=== PATIENT | female | born 1935 | race African-American/Black ===

== ENCOUNTER 2019-07-12 21:54 | Emergency (ER) | payer MEDICARE ==
[2019-07-12] MEDS ORDERED: ASPIRIN 81 MG TABLET, CHEWABLE PO ONE (22:02)
--- NOTE | 2019-07-12 23:01 | ER Document Report ---
ED Medical Screen (RME) - General Chief Complaint: Chest Pain > 30 Stated Complaint: EPIGASTRIC PAIN Time Seen by Provider: 07/12/19 22:54 Notes: HPI: 83-year-old female with no significant past medical history however she has not followed up with a primary care doctor in many years here for some epigastric chest pain that started around 2 PM however she states she took an Giovana-[place] and that nearly resolved the pain but she wanted to come in to get checked out. She has not had a cardiac work-up recently or a stress test. She denies having a PCP. No blood thinners. She denies taking any medications regularly. No ripping or tearing sensation. No fall or trauma. She states she feels a little nauseous but denies any fever, cough, shortness of breath, vomiting, diarrhea, constipation, UTI symptoms, history of this before, or any other symptoms. No other complaints at this time. pos fam hx of mother having an VA. she was a previous smoker. denies current tobacco use. ROS neg to include 10 systems, unless mentioned in the hpi. PE:>>>> PHYSICAL_EXAM: GENERAL_APPEARANCE: well_nourished, alert, cooperative, no_acute_distress, no_obvious_discomfort. pleasant, obese elderly black female, smiling, speaking in full sentences, in no sign of pain or resp distress, adult daughter at bedside VITALS: reviewed, see vital signs table. HEAD: no_swelling\tenderness on the head. normocephalic. atraumatic. no aguilar signs. no raccoons eyes. EYES: PERRL, EOMI, conjunctiva_clear. NOSE: no_nasal_discharge. MOUTH: (-)decreased moisture. THROAT: no_tonsilar_inflammation, no_airway_obstruction. no_lymphadenopathy NECK: supple, no_neck_tenderness, full rom. full strength. no meningeal signs. BACK: no_back_tenderness. CHEST_WALL: no_chest_tenderness. no overlying skin changes LUNGS: no_wheezing, ctab (-)accessory muscle use, good air exchange bilateral. HEART: normal_rate, normal_rhythm, ABDOMEN: normal_BS, soft, no_abd_tenderness, (-)guarding, (-)rebound, no distension or peritoneal signs. no cva ttp EXTREMITIES: strength 5/5 in all_extremities, good pulses in all_extremities, no_swelling\tenderness in the extremities, no_edema. full rom. good pulses. brisk cap refill. good hand hammer setter. NEURO: motor and sensation intact, SKIN: warm, dry, good_color, no_rash. MENTAL_STATUS: speech_clear, oriented_X_3, normal_affect, responds_appropriately to questions. MDM: I have ordered labs and initial work-up and patient will be transferred to the main ER for further work-up. I have greeted and performed a rapid initial assessment of this patient. A comprehensive ED assessment and evaluation of the patient, analysis of test results and completion of medical decision making process will be conducted by an additional ED providers. Documentation achieved through voice recording which my lead to some occasional accidental typographical errors. Extensive efforts have been made to proof read documentation to make sure these are the least as possible Temp Pulse Resp BP Pulse Ox 07/12/19 22:18 98.2 F 66 16 169/74 H 95 Category Date Time Status Continuous Cardiac Monitoring (ED) CONTINUOUS Care 07/12/19 22:02 Active EKG Documentation STAT Care 07/12/19 22:02 Completed Oxygen (ED) Nasal Cannula 2 lpm Care 07/12/19 22:02 Active Pulse Oximeter Continuous (ED) CONTINUOUS Care 07/12/19 22:02 Active Saline Lock (ED) NOW Care 07/12/19 22:02 Active CHEST 2 VIEWS [RAD] Stat Exams 07/12/19 22:56 Ordered CBC WITH DIFF [HEME] Stat Lab 07/12/19 22:02 Ordered COMPREHENSIVE METABOLIC PANEL [CHEM] Stat Lab 07/12/19 22:02 Ordered CREATINE KINASE MB [CHEM] Stat Lab 07/12/19 22:02 Ordered CREATINE KINASE [CHEM] Stat Lab 07/12/19 22:02 Ordered LIPASE [CHEM] Stat Lab 07/12/19 22:56 Ordered PARTIAL THROMBOPLASTIN TIME [COAG] Stat Lab 07/12/19 22:56 Ordered PROTHROMBIN TIME/INR [COAG] Stat Lab 07/12/19 22:56 Ordered TROPONIN I [CHEM] Stat Lab 07/12/19 22:02 Ordered TROPONIN I [CHEM] Stat Lab 07/13/19 02:02 Ordered URINALYSIS [URIN] Stat Lab 07/12/19 22:56 Uncollected Aspirin [Aspirin 81 mg Chewable Tablet] Med 07/12/19 22:02 Discontinued 324 mg PO NOW ONE EKG ER ONLY [ER] Stat Oth 07/12/19 22:02 Active TRAVEL OUTSIDE OF THE [place] IN LAST 30 DAYS: No - Related Data Allergies/Adverse Reactions: No Known Allergies Allergy (Unverified 07/12/19 22:02) Physical Exam - Vital signs Vitals: Temp Pulse Resp BP Pulse Ox 98.2 F 66 16 169/74 H 95 07/12/19 22:18 07/12/19 22:18 07/12/19 22:18 07/12/19 22:18 07/12/19 22:18 Course - Vital Signs Vital signs: Temp Pulse Resp BP Pulse Ox 98.2 F 66 16 169/74 H 95 07/12/19 22:18 07/12/19 22:18 07/12/19 22:18 07/12/19 22:18 07/12/19 22:18
[2019-07-12 23:32] LABS: ABSOLUTE LYMPHOCYTES (AUTO) 0.9 10^3/uL (0.5-4.7); ABSOLUTE MONOCYTES (AUTO) 0.2 10^3/uL (0.1-1.4); ABSOLUTE NEUT (AUTO) 7.4 10^3/uL (1.7-8.2); BASOPHILS % (AUTO) 0.2 % (0-2); HEMOGLOBIN 13.6 g/dL (12.0-15.5); MEAN CORPUSCULAR HEMOGLOBIN 32.6 pg (27.0-33.4); MEAN CORPUSCULAR HGB CONC 33.9 g/dL (32.0-36.0); MEAN CORPUSCULAR VOLUME 96 fl (80-97); MONOCYTES % (AUTO) 2.5 % (3-13); PLATELET COUNT 237 10^3/uL (150-450); RED BLOOD COUNT 4.16 10^6/uL (3.72-5.28); RED CELL DISTRIBUTION WIDTH 14.3 % (11.5-14.0); SEGMENTED NEUTROPHILS % (AUTO) 87.3 % (42-78); TOTAL CELLS COUNTED % (AUTO) 100 %; WHITE BLOOD COUNT 8.5 10^3/uL (4.0-10.5)
[2019-07-12 23:43] LABS: ALBUMIN 4.3 g/dL (3.5-5.0); ALKALINE PHOSPHATASE 110 U/L (38-126); ANION GAP 14 (5-19); ASPARTATE AMINO TRANSFERASE 106 U/L (14-36); BILIRUBIN,DIRECT 1.4 mg/dL (0.0-0.4); BILIRUBIN,TOTAL 2.1 mg/dL (0.2-1.3); BLOOD UREA NITROGEN 10 mg/dL (7-20); CALCIUM 9.8 mg/dL (8.4-10.2); CARBON DIOXIDE 22 mmol/L (22-30); CHLORIDE 104 mmol/L (98-107); CREATINE KINASE 102 U/L (30-135); GLUCOSE 145 mg/dL (75-110); POTASSIUM 3.6 mmol/L (3.6-5.0); TOTAL PROTEIN 8.3 g/dL (6.3-8.2)
--- NOTE | 2019-07-12 23:43 | RADIOLOGY REPORT (SQ) ---
XR CHEST 2 VIEWS EXAM DATE: 07/12/2019 10:56 PM CDT HISTORY: Chest pain. COMPARISON: None. FINDINGS: The heart size is within normal limits. No consolidation, pleural effusion, or pneumothorax is seen. Left lung base atelectasis. The bony thorax is intact. IMPRESSION: No evidence of acute cardiopulmonary disease.
[2019-07-12 23:46] LABS: INTERNATIONAL RATION (INR) 1.04; PROTHROMBIN TIME 13.6 SEC (11.4-15.4)
[2019-07-12 23:47] LABS: PARTIAL THROMBOPLASTIN TIME 25.2 SEC (23.5-35.8)
[2019-07-12 23:56] LABS: CREATINE KINASE MB 0.45 ng/mL (<4.55); TROPONIN I < 0.012 ng/mL
--- NOTE | 2019-07-13 00:56 | ER Document Report ---
ED General - General Chief Complaint: Chest Pain > 30 Stated Complaint: EPIGASTRIC PAIN Time Seen by Provider: 07/12/19 22:54 Mode of Arrival: Medic Information source: Patient TRAVEL OUTSIDE OF THE [place] IN LAST 30 DAYS: No - HPI Notes: HPI: 83-year-old female with no significant past medical history however she has not followed up with a primary care doctor in many years here for some midline lower to upper abd pain that started around 2 PM however she states she took an Giovana-[place] and that nearly resolved the pain but she wanted to come in to get checked out. She has not had a cardiac work-up recently or a stress test. She denies having a PCP. No blood thinners. She denies taking any medications regularly. No ripping or tearing sensation. No fall or trauma. She states she feels a little nauseous but denies any fever, cough, shortness of breath, vomiting, diarrhea, constipation, UTI symptoms, history of this before, or any other symptoms. No other complaints at this time. pos fam hx of mother having an IN. she was a previous smoker. denies current tobacco use. No back pain. The patient is on no medications and has no regular practitioner. - Related Data Allergies/Adverse Reactions: No Known Allergies Allergy (Unverified 07/12/19 22:02) Past Medical History - General Information source: Patient, Relative - Social History Smoking Status: Former Smoker Frequency of alcohol use: None Drug Abuse: None Lives with: Family Family History: CAD Review of Systems - Review of Systems -: Yes All other systems reviewed and negative Physical Exam - Vital signs Vitals: Temp Pulse Resp BP Pulse Ox 98.2 F 66 16 169/74 H 95 07/12/19 22:18 07/12/19 22:18 07/12/19 22:18 07/12/19 22:18 07/12/19 22:18 - Notes Notes: PHYSICAL EXAMINATION: GENERAL: Well-appearing, well-nourished and in no acute distress. HEAD: Atraumatic, normocephalic. EYES: Pupils equal round and reactive to light, extraocular movements intact, conjunctiva are normal. ENT: Nares patent, oropharynx clear without exudates. Moist mucous membranes. NECK: Normal range of motion, supple without lymphadenopathy LUNGS: Breath sounds clear to auscultation bilaterally and equal. No wheezes rales or rhonchi. HEART: Regular rate and rhythm without murmurs ABDOMEN: Soft, nondistended abdomen. No guarding, no rebound. No masses appreciated. Pain from the suprapubic region extending up to the mid epigastric region. Patient reports this is better after she vomited once at the onset of the exam. Negative Trimble's. No gross hepatosplenomegaly. Female : deferred Musculoskeletal: Normal range of motion, no pitting or edema. No cyanosis. NEUROLOGICAL: Cranial nerves grossly intact. Normal speech, normal gait. Normal sensory, motor exams PSYCH: Normal mood, normal affect. SKIN: Warm, Dry, normal turgor, no rashes or lesions noted. Course - Re-evaluation Re-evalutation: 07/13/19 01:12 Patient was given IV Zofran and Pepcid. 07/13/19 08:10 Initial blood pressure was elevated but this improved over time without any spec ific therapy.. The patient had a slight elevation of her total bilirubin at 2.1 with a direct bilirubin of 1.4. UTI was noted and patient was given IV Rocephin after urine culture was obtained. CT scan raised question of acute cholecystitis, although there is no mention of specific findings. Ultrasound was suggested and this was ordered. Care was turned over to Dr. Salvador at 0 600 for further evaluation and management. - Vital Signs Vital signs: Temp Pulse Resp BP Pulse Ox 98.2 F 60 16 147/84 H 96 07/12/19 22:18 07/13/19 01:41 07/13/19 05:01 07/13/19 05:01 07/13/19 05:01 - Laboratory Result Diagrams: 07/12/19 23:15 07/12/19 23:15 Laboratory results interpreted by me: 07/12/19 07/12/19 07/13/19 23:15 23:15 04:36 RDW 14.3 H Seg Neutrophils % 87.3 H Lymphocytes % 10.0 L Monocytes % 2.5 L Glucose 145 H Total Bilirubin 2.1 H Direct Bilirubin 1.4 H AST 106 H Total Protein 8.3 H Urine Blood SMALL H Urine Urobilinogen 2.0 H Ur Leukocyte Esterase SMALL H - EKG Interpretation by Ms EKG shows normal: Sinus rhythm Additional EKG results interpreted by oh: 07/13/19 01:14 EKG is interpreted by me showed normal sinus rhythm heart rate of 66. There is left anterior fascicular block and borderline left ventricular hypertrophy. There is no gross evidence for acute IN. There are T wave inversions in lead III and aVF. No old EKG available for comparison. Discharge - Discharge Clinical Impression: Urinary tract infection Qualifiers: Urinary tract infection type: acute cystitis Disposition: OTHER
[2019-07-13] MEDS ORDERED: ONDANSETRON HCL INJ/PF 4 MG/2 ML SDV IV ONE (01:09)
[2019-07-13] MEDS ORDERED: ASPIRIN 81 MG TABLET, CHEWABLE ONE (01:58)
[2019-07-13 04:53] LABS: APPEARANCE,URINE CLEAR; BILIRUBIN,URINE NEGATIVE (NEGATIVE); COLOR,URINE YELLOW; GLUCOSE, URINE NEGATIVE (NEGATIVE); KETONES,URINE NEGATIVE (NEGATIVE); LEUKOCYTE ESTERASE,URINE SMALL (NEGATIVE); NITRITE,URINE NEGATIVE (NEGATIVE); PROTEIN,URINE NEGATIVE (NEGATIVE)
--- NOTE | 2019-07-13 04:56 | RADIOLOGY REPORT (SQ) ---
EXAM DESCRIPTION: CT ABDOMEN PELVIS WITH IV CONTRAST COMPLETED DATE/TME: 07/13/2019 00:00 CLINICAL HISTORY: 83 years, Female, diffuse abd pain, mild bilirubin elevation COMPARISON: None. TECHNIQUE: Axial CT images of the abdomen and pelvis were obtained after the administration of IV contrast. Sagittal and coronal reformats were performed. DL [id number] Images stored on PACS. All CT scanners at this facility use dose modulation, iterative reconstruction, and/or weight based dosing when appropriate to reduce radiation dose to as low as reasonably achievable (ALARA). [facility]: Dose Right [facility]: CareDose [facility]: Dose Right [facility]: Teradose 4D [facility]: Diaferon LIMITATIONS: None. FINDINGS: Lung bases are clear. The liver, pancreas, spleen, and adrenal glands are unremarkable. The gallbladder is mildly distended with mild thickening and hyperemia of the zhang. No calcified stone is identified. No evidence of intra or extrahepatic biliary dilatation. The common bile duct measures approximately 4 mm in diameter. Both kidneys enhance normally. No evidence of urolithiasis or hydronephrosis. There is no intraperitoneal free air or fluid. There is no lymphadenopathy. The abdominal aorta is normal in caliber. There are atherosclerotic calcifications of the iliac branches. The stomach, small bowel, and appendix appear unremarkable. The colon is incompletely distended. The uterus, urinary bladder, and adnexa appear unremarkable. There are no lytic or blastic bone lesions. IMPRESSION: Findings concerning for acute cholecystitis. Further evaluation with ultrasound may be useful. TECHNICAL DOCUMENTATION: Quality ID # 436: Final reports with documentation of one or more dose reduction techniques (e.g., Automated exposure control, adjustment of the mA and/or kV according to patient size, use of iterative reconstruction technique) copyright 2011 [employer]- All Rights Reserved
[2019-07-13] MEDS ORDERED: CEFTRIAXONE 1 GM/D5W RTU 1 GM/50 ML RTUPB IV ONE (06:47)
--- NOTE | 2019-07-13 09:14 | RADIOLOGY REPORT (SQ) ---
EXAM DESCRIPTION: U/S ABDOMEN LIMITED W/O DOP COMPLETED DATE/TIME: 07/13/2019 8:35 am REASON FOR STUDY: RUQ pain COMPARISON: None. TECHNIQUE: Dynamic and static grayscale images acquired of the abdomen and recorded on PACS. Additio nal selected color Doppler and spectral images recorded. LIMITATIONS: None. FINDINGS: PANCREAS: No masses. Visualized pancreatic duct normal caliber. LIVER: No masses. Echotexture normal. LIVER VASCULATURE: Normal directional flow of the main portal vein and hepatic veins. GALLBLADDER: Small stones. Borderline wall thickness. Small amount of pericholecystic fluid. ULTRASOUND-DETECTED SERRANO'S SIGN: Negative. INTRAHEPATIC DUCTS AND COMMON DUCT: CBD and intrahepatic ducts normal caliber. No filling defects. INFERIOR VENA CAVA: Normal flow. AORTA: No aneurysm identified. RIGHT KIDNEY: Normal size. Normal echogenicity. No solid or suspicious masses. No hydronephros is. No calcifications. PERITONEAL AND RIGHT PLEURAL SPACE: No ascites or effusions. OTHER: No other significant findings. IMPRESSION: Gallstones and borderline wall thickness. Small amount of pericholecystic fluid. TECHNICAL DOCUMENTATION: JOB ID: [id number] [place]-72 2010 [email or web address]- All Rights Reserved Reading location - IP/workstation name: [employer]
--- NOTE | 2019-07-13 10:30 | EKG REPORT ---
SEVERITY:- ABNORMAL ECG - SINUS RHYTHM LEFT ANTERIOR FASCICULAR BLOCK LEFT VENTRICULAR HYPERTROPHY ABNORMAL T, CONSIDER ISCHEMIA, INFERIOR LEADS : Confirmed by: Kasey Thomas 13-Jul-2019 10:29:42
--- NOTE | 2019-07-13 12:07 | PDOC CONSULTATION ---
Consultation Consult Date: 07/13/19 Provider Consulted: FRANKIE KARIMI Consult reason:: gallstones History of Present Illness Admission Date/PCP: 07/13/19 11:25 History of Present Illness: KIEL MCGRATH is a 83 year old female suddenly c/o epigastric pains yesterday around noon time after a fatty meal. Had some mild nausea and then went to ED today. Had one episode of vomiting in the ED and felt better afterwaeds. Right now claims she does not have any more pains and feels ungry. Denies fever nor chills, diarrhea nor constipation. Past Surgical History Past Surgical History: Reports: Tubal Ligation Social History Lives with: Family Smoking Status: Former Smoker Family History Family History: CAD Parental Family History Reviewed: Yes Children Family History Reviewed: No Sibling(s) Family History Reviewed.: No Medication/Allergy Allergies/Adverse Reactions: No Known Allergies Allergy (Unverified 07/12/19 22:02) Review of Systems Constitutional: PRESENT: as per HPI Physical Exam Vital Signs: Temp Pulse Resp BP Pulse Ox 98.2 F 60 19 146/82 H 97 07/12/19 22:18 07/13/19 01:41 07/13/19 09:01 07/13/19 09:01 07/13/19 09:01 Intake & Output 07/12/19 07/13/19 07/14/19 06:59 06:59 06:59 Intake Total 50 Balance 50 Weight 90.2 kg General appearance: PRESENT: no acute distress Head exam: PRESENT: atraumatic Eye exam: PRESENT: conjunctiva pink Mouth exam: PRESENT: moist Neck exam: PRESENT: full ROM Respiratory exam: PRESENT: clear to auscultation brinda Pulses: PRESENT: normal radial pulses GI/Abdominal exam: PRESENT: soft - non tender Results Laboratory Results: 07/12/19 23:15 07/12/19 23:15 07/12/19 07/12/19 07/13/19 23:15 23:15 04:36 WBC 8.5 RBC 4.16 Hgb 13.6 Hct 40.0 MCV 96 MCH 32.6 MCHC 33.9 RDW 14.3 H Plt Count 237 Seg Neutrophils % 87.3 H Lymphocytes % 10.0 L Monocytes % 2.5 L Eosinophils % 0.0 Basophils % 0.2 Absolute Neutrophils 7.4 Absolute Lymphocytes 0.9 Absolute Monocytes 0.2 Absolute Eosinophils 0.0 Absolute Basophils 0.0 Sodium 139.6 Potassium 3.6 Chloride 104 Carbon Dioxide 22 Anion Gap 14 BUN 10 Creatinine 0.71 Est GFR ( Amer) > 60 Est GFR (Non-Af Amer) > 60 Glucose 145 H Calcium 9.8 Total Bilirubin 2.1 H AST 106 H Alkaline Phosphatase 110 Total Protein 8.3 H Albumin 4.3 Lipase 72.0 Urine Color YELLOW Urine Appearance CLEAR Urine pH 7.0 Ur Specific [place] 1.010 Urine Protein NEGATIVE Urine Glucose (UA) NEGATIVE Urine Ketones NEGATIVE Urine Blood SMALL H Urine Nitrite NEGATIVE Ur Leukocyte Esterase SMALL H Urine WBC (Auto) 15 07/12/19 07/12/19 07/13/19 23:15 23:15 02:00 Creatine Kinase 102 CK-MB (CK-2) 0.45 Troponin I < 0.012 < 0.012 Impressions: Chest X-Ray 07/12/19 22:56 IMPRESSION: No evidence of acute cardiopulmonary disease. Abdomen/Pelvis CT 07/13/19 00:00 IMPRESSION: Findings concerning for acute cholecystitis. Further evaluation with ultrasound may be useful. TECHNICAL DOCUMENTATION: Quality ID # 436: Final reports with documentation of one or more dose reduction techniques (e.g., Automated exposure control, adjustment of the mA and/or kV according to patient size, use of iterative reconstruction technique) copyright 2011 [employer]- All Rights Reserved Abdomen Ultrasound 07/13/19 06:31 IMPRESSION: Gallstones and borderline wall thickness. Small amount of pericholecystic fluid. Assessment & Plan - Diagnosis (1) cholelithiasis Is this a current diagnosis for this admission?: Yes (2) Biliary colic Is this a current diagnosis for this admission?: Yes - Time Time Spent: 30 to 50 Minutes - Plan Summary Plan Summary: She is now asymptomatic with normal WBC. Her Bilirubin and AST are slightly elevated not exactly sure about etiology. Will repeat these test on OPD basis and follow up at the surgical clinic next week for possible elective laparoscopic cholecystectomy. Will try low fat diet and if tolerates OK to discharge from ED to be followed in the surgical clinic. Advised patient in the presence of her family about low fat diet prior to cholecystectomy.
[2019-07-13 13:58] VITALS: BP 160/84
== END 2019-07-13 13:58 | disposition home or self-care (01) ==
LOC: ER 21:54 → EH 07-13 11:25 → UNDOADMIN 07-13 11:25 → UNDODISIN 07-13 11:59 → ER 07-13 13:58
DX: K81.9 Cholecystitis, unspecified (principal); N39.0 Urinary tract infection, site not specified; R10.10 Upper abdominal pain, unspecified
CPT/HCPCS: 93005; 99285; 96375; 96365; 36415; 87086; 82553; 82550; 83690; 85025; 85610; 85730; 87088; 80053; 81001; 84484; 87186; 71046; 76705; 74177; 93010; A9270; J2405; J0696

== ENCOUNTER → 2019-07-18 | Outpatient (CLI) | payer MEDICARE ==
[2019-07-18 08:44] LABS: ALBUMIN 4.3 g/dL (3.5-5.0); ALKALINE PHOSPHATASE 123 U/L (38-126); ASPARTATE AMINO TRANSFERASE 42 U/L (14-36); BILIRUBIN,DIRECT 0.6 mg/dL (0.0-0.4); BILIRUBIN,TOTAL 1.2 mg/dL (0.2-1.3); TOTAL PROTEIN 7.6 g/dL (6.3-8.2)
[2019-07-18 09:08] LABS: CARCINOEMBRYONIC ANTIGEN 5.7 ng/mL (<3.0)
== END ==
LOC: OD 07:04
PROVIDERS: ATTEND Surgery
DX: K82.8 Other specified diseases of gallbladder (principal); C25.9 Malignant neoplasm of pancreas, unspecified; R94.5 Abnormal results of liver function studies; K80.20 Calculus of gallbladder without cholecystitis without obstruction; R10.9 Unspecified abdominal pain
CPT/HCPCS: 36415; 80076; 82378; 86301

== ENCOUNTER 2019-07-24 05:22 | Day surgery (SDC) | payer MEDICARE ==
[~2019-07-24 05:22] MED LIST: ACETAMINOPHEN 325 MG TABLET PO PRN; CEFAZOLIN 1 GM/D5W RTU 1 GM/50 ML RTUPB IV ONE; RINGERS SOLUTION,LACTATED 1,000 ML IV PRN
[2019-07-24] MEDS ORDERED: BUPIVACAINE HCL 0.25 % INJ/PF (2.5 MG/1 ML) 30 ML VIAL ONE (06:57)
[2019-07-24] MEDS ORDERED: MIDAZOLAM 2 MG/2 ML INJ ONE (07:02)
[2019-07-24] MEDS ORDERED: FENTANYL CITRATE INJ/PF 250 MCG/5 ML AMPULE ONE (07:02)
[2019-07-24] MEDS ORDERED: PROPOFOL INJ 200 MG/20 ML VIAL IV ONE (07:02)
[2019-07-24] MEDS ORDERED: BUPIVACAINE HCL 0.25 % INJ/PF (2.5 MG/1 ML) 30 ML VIAL INJ ONE (07:52)
[2019-07-24] MEDS ORDERED: FENTANYL CITRATE INJ/PF 100 MCG/2 ML AMPUL IV PRN ×3 (08:15)
[2019-07-24] MEDS ORDERED: DIPHENHYDRAMINE HCL 50 MG/ML VIAL IV PRN (08:15)
[2019-07-24] MEDS ORDERED: PROMETHAZINE HCL INJ 25 MG/1 ML VIAL IV PRN ×2 (08:15)
[2019-07-24] MEDS ORDERED: OXYCODONE-ACETAMINOPHEN 5-325 MG TABLET PO PRN ×3 (08:15→08:43)
[2019-07-24] MEDS ORDERED: MEPERIDINE HCL/PF INJ 25 MG/1 ML DISP.SYRIN IV PRN (08:15)
--- NOTE | 2019-07-24 08:43 | Discharge Summary ---
Discharge Summary (SDC) - Discharge Final Diagnosis: cholelithiasis Date of Surgery: 07/24/19 Discharge Date: 07/24/19 Condition: Good Treatment or Instructions: [facility] [address], [place] [address] Discharge Instructions: Laparoscopic Surgery 1. General Information: a. DO NOT DRIVE a car or operate dangerous machinery for 3-4 days or while taking narcotic pain pills. b. DO NOT consume alcohol, tranquilizers, sleeping medications or any non- prescribed medications for 24 hours unless approved by your doctor or as long as taking narcotic prescription medications. c. DO NOT make important decisions or sign any important papers for the first 24 hours after surgery. d. When discharged home the same day of surgery have a responsible person with you for the first night. 2. Activity Restrictions: 2 weeks. a. NO heavy lifting, straining abdominal muscles, bending over a lot, yard work, house work, or sports for [address] for 3-4 days or while taking _Toradol__ . c. It is fine to go for walks, up and down steps, ride in a car. d. Elevate your head when sleeping/resting. 3. Treatment: a. You may shower 48 hours after surgery, no baths or swimming for 2 weeks. Leave paper strips (steri-strips) on the skin to fall off on their own. If still on at postoperative visit they will be removed then. b. Drainage of fluid or blood is not unusual from an incision. If occurs, you can clean with peroxide and cotton ball daily and cover with dry gauze until the wound seals. c. If a lot of bleeding occurs, you can hold pressure with a gauze or cloth over the site for 10 minutes and it will usually stop. If bleeding continues you will need to call for possible evaluation in office or emergency room. 4. Medications: a. _Toradol may be taken for pain as needed, one tablet every 6 hours. Do not take additional NSAIDs ( ibuprofen, aleve, advil, goodies powder) with Toradol. You may supplement Tylenol with the medication. b. You should resume all normal medications unless a change is specified by your doctors. 5. Diet: Begin with clear liquids and may progress to your normal diet if not nauseated. No high fat, high protein foods the day of surgery. 6. The following may occur after laparoscopic surgery: a. Shoulder or upper back ache from retained gas that should resolve in 1-2 days b. Soreness and bruising at incision sites will resolve with time. c. Scrotal swelling (labia in women) and bruising is often seen after hernia surgery. d. Sore throat e. Fatigue may last days to weeks. f. Difficulty urinating may occur and may need to come into emergency room for urinary catheter placement. 7. Notify Physician If: a. Worsening or pain not improved with pain medication b. Persistent nausea and vomiting c. Fever above 101 d. Persistent bleeding or swelling at operative site e. Unable to urinate and uncomfortable bladder 6-8 hours after surgery 8..Follow Up Care: a. Schedule a follow up appointment with your doctor for 2 weeks. In the event of any postoperative problems or questions or you may call the office during business hours or the On-Call physician evenings and weekends at [facility]. [facility] I understand the instructions for my postoperative care as described above and a copy has been given to me. Patient/Significant Other Witness Date Prescriptions: Ketorolac Tromethamine [Toradol 10 mg Tablet] 10 mg PO Q6HP PRN #20 tablet PRN Reason: Discharge Diet: Other (Comments) - small bland portions Discharge Activity: Balance Activity w/Rest, No Lifting Over 10 Pounds, Walk Frequently Report the Following to Your Physician Immediately: Nausea, Vomiting, Increase in Pain, Fever over 101 Degrees, Unusual Bleeding, Redness, Swelling, Warmth, Increased Soreness, Drainage-Foul Smelling
[2019-07-24] MEDS ORDERED: EPHEDRINE SULFATE INJ 50 MG/1 ML AMPULE ONE (08:44)
--- NOTE | 2019-07-24 08:44 | Operative Report ---
Operative Report DATE OF SURGERY: 07/24/19 PREOPERATIVE DIAGNOSIS: Symptomatic cholelithiasis with cholecystitis POSTOPERATIVE DIAGNOSIS: Same OPERATION: Laparoscopic cholecystectomy SURGEON: SIDDHARTHA LAUREN ANESTHESIA: GA TISSUE REMOVED OR ALTERED: 1 gallbladder with contents COMPLICATIONS: None ESTIMATED BLOOD LOSS: Scant INTRAOPERATIVE FINDINGS: See below PROCEDURE: After obtaining informed consent, the patient was taken to the operating room. General Anesthesia was induced; the arms were extended, and the abdomen was exposed, and prepped and draped in a sterile fashion. Instrumentation was set up for laparoscopic cholecystectomy. Surgical plan and surgical timeout were conducted. A vertical incision was made above the umbilicus, and a verres needle was inserted uneventfully into the peritoneal cavity. Pneumoperitoneum was established. The verres needle was removed and a 5 mm trocar was inserted and a 5 mm flexible laparoscope was inserted. Visualization of the peritoneal cavity confirmed safe uneventful entry. Under direct visualization 3 additional 5 mm ports were established, one in the subxiphoid position and second in the subcostal position. There is no evidence of bile, blood, malignancy in the peritoneal cavity. Visualization of the hepatobiliary anatomy revealed no anatomic variations. A grasper was placed on the fundus of the gallbladder and the gallbladder is elevated over the right surface of the liver; a second grasper was used to grasp the infundibulum of the gallbladder. The neck of the gallbladder and junction with the cystic duct was dissected out. The Cystic artery was in its usual location medial and cephalad to the cystic duct. The cystic artery was surrounded with a right angle clamp, clipped twice proximally and divided with laparoscopic scissors. We now opened the triangle of Calot by dividing the peritoneal reflection on both the medial and lateral sides of the cystic duct infundibular junction. The critical view was obtained. Photos were taken. We now milked the cystic duct of any possible stones, clipped the cystic duct approximately 3 times, once distally and divided with scissors. The gallbladder was now removed from the undersurface of the liver using hook cautery dissection. Graspers were repositioned and the gallbladder was removed uneventfully from the abdominal cavity through the super umbilical port site incision. The specimen was examined, then passed off to pathology for permanent analysis. We returned to the peritoneal cavity check for bleeding, and evidence of bile leak, and there was none. We Confirmed satisfactory placement of clips on cystic duct and cystic artery were secured . At this point we felt the operation was complete. The subcutaneous tissue was then anesthetized with quarter percent Marcaine Sponge and needle counts are correct. All ports removed under direct visualization pneumoperitoneum evacuated, the supraumbilical port site closed with 0 Vicryl and 5 mm port wounds closed with 3-0 Vicryl suture, benzoin and Steri-Strips. The patient was extubated, and taken to the recovery room in stable condition. The physician logging assistant, Ms. Cole, provided assistance during this case by: Assisting and port insertion, retracting tissue, instillation of local anesthesia and closure of skin incisions.
[2019-07-24 10:55] VITALS: BP 146/99
[2019-07-24] MEDS ORDERED: ONDANSETRON HCL INJ/PF 4 MG/2 ML SDV ONE (14:36)
[2019-07-24] MEDS ORDERED: DEXAMETHASONE SOD PHOSPHATE INJ 4 MG/1 ML VIAL ONE (14:36)
[2019-07-24] MEDS ORDERED: ROCURONIUM BROMIDE INJ 50 MG/5 ML VIAL IV ONE (14:36)
[2019-07-24] MEDS ORDERED: LIDOCAINE 2% INJ-PF (20 MG/ML) 2 ML AMPUL ONE (14:36)
[2019-07-24] MEDS ORDERED: GLYCOPYRROLATE 1 MG/5 ML VIAL ONE (14:36)
[2019-07-24] MEDS ORDERED: NEOSTIGMINE METHYLSULFATE 10 MG/10 ML VIAL ONE (14:36)
== END 2019-07-24 10:20 | disposition home or self-care (01) ==
LOC: OROUT 05:22
PROVIDERS: ATTEND Surgery
DX: K80.10 Calculus of gallbladder with chronic cholecystitis without obstruction (principal); Z87.891 Personal history of nicotine dependence; Z79.82 Long term (current) use of aspirin
CPT/HCPCS: 88304 ×2; 00790; 47562; J2250; J0690; J3490 ×4; J1100; J3010; J2710; J2405; J2704; 790